=== PATIENT | female | born 1950 | race Caucasian/White ===

== ENCOUNTER 2021-09-11 12:29 | Emergency (ER) | payer MEDICARE, OTHER ==
[~2021-09-11] VITALS: Ht 152.4 cm; Wt 86.3 kg
[~2021-09-11 12:29] MED LIST: ASP81CT; DIOVAN; LASIX; METFORMIN; MULTIVITAMINS; SPIRONOLACTONE; TOPROL
[2021-09-11] MEDS ORDERED: KETOROLAC 30 MG/ML VIAL IVP ONE (12:45)
[2021-09-11] MEDS ORDERED: NS IV 500 ML 500 ML IV SCH (12:45)
[2021-09-11 12:53] LABS: BILIRUBIN,URINE NEGATIVE (NEGATIVE); CLARITY,URINE CLEAR; COLOR,URINE YELLOW; GLUCOSE, URINE (UA) 3+ (NEGATIVE); KETONES,URINE 1+ (NEGATIVE); LEUKOCYTE ESTERASE ,URINE NEGATIVE (NEGATIVE); NITRITE,URINE NEGATIVE (NEGATIVE); PROTEIN,URINE NEGATIVE (NEGATIVE)
--- NOTE | 2021-09-11 12:54 | ED Abdominal Pain ---
General Chief Complaint: Abdominal/GI Problems Stated Complaint: ABD PAIN Nursing Triage Note: AMB TO ED WITH FAMILY WITH C/O ABD PAIN AND DISTENDED ABD AND NO APPETITE Source of Information: Patient Exam Limitations: No Limitations History of Present Illness Date Seen by Provider: Sep 11, 2021 Time Seen by Provider: 12:51 Initial Comments To ER with right-sided lower abdominal pain since yesterday. Decreased appetite. Last had shredded wheat. 9 AM. No anticoagulant or antiplatelet use. No urinary symptoms no fever no chills no nausea. She is passing gas and her last bowel movement was this morning normal. Colonoscopy and April of this year showed mild diverticulosis without polyp or other abnormality. Timing/Duration: 1-2 Days Severity/Quality: Moderate Radiation: No Radiation Activities at Onset: None Associated Symptoms: Denies Symptoms; No Nausea/Vomiting Allergies and Home Medications Allergies Coded Allergies: No Known Drug Allergies (Unverified , 12/31/10) Patient Home Medication List Home Medication List Reviewed: Yes Aspirin (Aspirin 81 Mg Chew Tab) 81 Mg Chew, (Reported) Entered as Reported by: NICO STOUT on 12/31/101905 Ondansetron (Ondansetron Odt) 8 Mg Tab.rapdis, 8 MG PO Q6H PRN for NAUSEA/VOMITING Prescribed by: MYRIAM DARBY on 09/11/211401 Oxycodone HCl/Acetaminophen (Percocet 5-325 mg Tablet) 1 Each Tablet, 1 TAB PO Q4H Prescribed by: MYRIAM DARBY on 09/11/211401 Pantoprazole Sodium (Protonix) 40 Mg Tablet.dr, 40 MG PO DAILY Prescribed by: MYRIAM DARBY on 09/11/211401 [Diovan] , (Reported) Entered as Reported by: NICO STOUT on 12/31/101905 [Lasix] , (Reported) Entered as Reported by: NICO STOUT on 12/31/101905 [Metformin] , (Reported) Entered as Reported by: NICO STOUT on 12/31/101905 [Multivitamins] , (Reported) Entered as Reported by: NICO STOUT on 12/31/101905 [Spironolactone] , (Reported) Entered as Reported by: NICO STOUT on 12/31/101905 [Toprol] , (Reported) Entered as Reported by: NICO STOUT on 12/31/101905 Review of Systems Review of Systems Constitutional: see HPI EENTM: No Symptoms Reported Respiratory: No Symptoms Reported Cardiovascular: No Symptoms Reported Gastrointestinal: See HPI, Abdominal Pain; Denies Diarrhea, Denies Nausea; Poor Appetite Genitourinary: No Symptoms Reported Musculoskeletal: no symptoms reported Skin: no symptoms reported Psychiatric/Neurological: No Symptoms Reported Endocrine: No Symptoms Reported Hematologic/Lymphatic: No Symptoms Reported Past [id number] Hx Patient Social History Tobacco Use?: No Substance use?: No Alcohol Use?: No Immunizations Up To Date First/Initial COVID19 Vaccinat: OCT Second COVID19 Vaccination Bert: NOV COVID19 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 oz. kg; 37.00 BMI Method: General Appearance: WD/WN, no apparent distress, other (A&O x3 pleasant no distress) HEENT: PERRL/EOMI, normal ENT inspection Respiratory: no respiratory distress, no accessory muscle use Cardiovascular: no murmur, tachycardia Gastrointestinal: normal bowel sounds, soft; No abnormal bowel sounds; rebound, tenderness Extremities: normal range of motion, non-tender Neurologic/Psychiatric: alert, normal mood/affect, oriented x 3 Skin: normal color, warm/dry Progress/Results/Core Measures Results/Orders Lab Results Laboratory Tests Test 09/11/21 12:42 09/11/21 12:49 Range/Units Urine Color YELLOW Urine Clarity CLEAR Urine pH 6.0 5-9 Urine Specific Williams 1.010 L 1.016-1.022 Urine Protein NEGATIVE NEGATIVE Urine Glucose (UA) 3+ H NEGATIVE Urine Ketones 1+ H NEGATIVE Urine Nitrite NEGATIVE NEGATIVE Urine Bilirubin NEGATIVE NEGATIVE Urine Urobilinogen 0.2 < = 1.0 MG/DL Urine Leukocyte Esterase NEGATIVE NEGATIVE Urine RBC (Auto) NEGATIVE NEGATIVE Urine RBC NONE /HPF Urine WBC RARE /HPF Urine Squamous Epithelial Cells RARE /HPF Urine Crystals NONE /LPF Urine Bacteria NEGATIVE /HPF Urine Casts NONE /LPF Urine Mucus NEGATIVE /LPF Urine Culture Indicated NO White Blood Count 10.7 4.3-11.0 10^3/uL Red Blood Count 5.33 H 3.80-5.11 10^6/uL Hemoglobin 15.9 11.5-16.0 g/dL Hematocrit 46 35-52 % Mean Corpuscular Volume 87 80-99 fL Mean Corpuscular Hemoglobin 30 25-34 pg Mean Corpuscular Hemoglobin Concent 34 32-36 g/dL Red Cell Distribution Width 13.1 10.0-14.5 % Platelet Count 276 130-400 10^3/uL Mean Platelet Volume 9.8 9.0-12.2 fL Immature Granulocyte % (Auto) 0 % Neutrophils (%) (Auto) 77 H 42-75 % Lymphocytes (%) (Auto) 12 12-44 % Monocytes (%) (Auto) 10 0-12 % Eosinophils (%) (Auto) 1 0-10 % Basophils (%) (Auto) 1 0-10 % Neutrophils # (Auto) 8.2 H 1.8-7.8 10^3/uL Lymphocytes # (Auto) 1.3 1.0-4.0 10^3/uL Monocytes # (Auto) 1.0 0.0-1.0 10^3/uL Eosinophils # (Auto) 0.1 0.0-0.3 10^3/uL Basophils # (Auto) 0.1 0.0-0.1 10^3/uL Immature Granulocyte # (Auto) 0.0 0.0-0.1 10^3/uL Sodium Level 136 135-145 MMOL/L Potassium Level 3.9 3.6-5.0 MMOL/L Chloride Level 104 98-107 MMOL/L Carbon Dioxide Level 20 L 21-32 MMOL/L Anion Gap 12 5-14 MMOL/L Blood Urea Nitrogen 15 7-18 MG/DL Creatinine 0.82 0.60-1.30 MG/DL Estimat Glomerular Filtration Rate 68 BUN/Creatinine Ratio 18 Glucose Level 229 H 70-105 MG/DL Calcium Level 10.0 8.5-10.1 MG/DL Corrected Calcium 9.8 8.5-10.1 MG/DL Total Bilirubin 1.3 H 0.1-1.0 MG/DL Aspartate Amino Transf (AST/SGOT) 12 5-34 U/L Alanine Aminotransferase (ALT/SGPT) 14 0-55 U/L Alkaline Phosphatase 61 40-136 U/L C-Reactive Protein High Sensitivity 9.77 H 0.00-0.50 MG/DL Total Protein 7.2 6.4-8.2 GM/DL Albumin 4.3 3.2-4.5 GM/DL Triglycerides Level 151 H <150 MG/DL Cholesterol Level 167 < 200 MG/DL LDL Cholesterol Direct 107 1-129 MG/DL VLDL Cholesterol 30 5-40 MG/DL HDL Cholesterol 42 40-60 MG/DL Lipase 188 H 8-78 U/L My Orders Orders - MYRIAM DARBY APRN Cbc With Automated Diff (09/11/21 12:45) Comprehensive Metabolic Panel (09/11/21 12:45) Hs C Reactive Protein (09/11/21 12:45) Ed Iv/Invasive Line Start (09/11/21 12:45) Ua Culture If Indicated (09/11/21 12:45) Ketorolac Injection (Toradol Injection) (09/11/21 12:45) Ns Iv 500 Ml (Sodium Chloride 0.9%) (09/11/21 12:45) Ct Abd/Pelvis Wo(Kidney Stone) (09/11/21 12:45) Lipase (09/11/21 13:19) Us Gallbladder [id number] (09/11/21 13:32) Lipid Panel (09/11/21 13:34) Fentanyl Inj (Sublimaze Injection) (09/11/21 13:45) Medications Given in ED Current Medications Medications Dose Ordered Sig/Jeremiah Route Start Time Stop Time Status Last Admin Dose Admin Fentanyl Citrate 50 mcg ONCE ONCE IVP 09/11/21 13:45 09/11/21 13:46 DC 09/11/21 13:43 50 MCG Ketorolac Tromethamine 15 mg ONCE ONCE IVP 09/11/21 12:45 09/11/21 12:48 DC 09/11/21 13:06 15 MG Vital Signs/I&O 09/11/21 12:35 Temp 36.4 Pulse 109 Resp 18 B/P (MAP) 138/68 (91) Pulse Ox 96 O2 Delivery Room Air Blood Pressure Mean: 91 Diagnostic Imaging Diagonstic Imaging: CT Comments NAME: LM BABB MED REC#: [id number] PT STATUS: REG ER : 1950 PHYSICIAN: MYRIAM DARBY APRN ADMIT DATE: 09/11/21/ER Draft Date of Exam:09/11/21 CT ABD/PELVIS WO(KIDNEY STONE) PROCEDURE: CT urinary tract, rule out kidney stone. TECHNIQUE: Multiple contiguous axial images were obtained through the abdomen and pelvis without the use of intravenous contrast. Auto Exposure Controls were utilized during the CT exam to meet ALARA standards for radiation dose reduction. INDICATION: Right lower quadrant pain. No prior studies are available for comparison. The lung bases are clear of acute infiltrates. The liver and gallbladder are unremarkable. No biliary ductal dilatation is seen. There is some inflammation in the right upper quadrant, adjacent to the 2nd portion of the duodenum and pancreatic head. Pancreatic body and tail are unremarkable. No peripancreatic fluid collections are seen. The spleen is unremarkable. No adrenal mass is identified. There are tiny nonobstructing calculi in both kidneys. There is a probable cyst in the lower pole right kidney measuring 3.5 cm in size. Aorta is nonaneurysmal. There is some generalized colonic diverticulosis but no evidence of acute diverticulitis. Appendix is visualized in the right lower quadrant and appears unremarkable. No free fluid or fluid collection is seen. The bladder and uterus are unremarkable. Bony structures are nonacute. IMPRESSION: 1. Bilateral nonobstructing nephrolithiasis. 2. No CT evidence of acute appendicitis. 3. There is some inflammation in the right upper quadrant adjacent to the 2nd portion of duodenum and pancreatic head and uncinate. Features could be secondary to focal pancreatitis versus peptic ulcer disease. There is no free air to suggest perforated hollow viscus. 4. Uncomplicated diverticulosis. Dictated on workstation # [id number] Dict: 09/11/21 1317 Trans: 09/11/21 1325 CVB [id number] Interpreted by: ANDREY SULLIVAN MD Electronically signed by: Departure Impression Primary Impression: Pancreatitis Disposition: 01 HOME, SELF-CARE Condition: Stable Departure-Patient Inst. Decision time for Depature: 13:57 Referrals: NO,LOCAL PHYSICIAN (PCP/Family) Primary Care Physician Patient Instructions: No Instuctions Given Add. Discharge Instructions: 1. clear liquids for 36-48 hours. 2. Follow up with Dr Peacock. 3. Nausea and pain meds as directed. Return to ER for intolerable pain, vomintign, fevers, or other concerns. All discharge instructions reviewed with patient and/or family. Voiced understanding. Scripts Oxycodone HCl/Acetaminophen (Percocet 5-325 mg Tablet) 1 Each Tablet 1 TAB PO Q4H for PAIN-MODERATE MDD 6 TABS for 7 Days, #14 TAB Prov: MYRIAM DARBY APRN 09/11/21 Pantoprazole Sodium (Protonix) 40 Mg Tablet.dr 40 MG PO DAILY, #30 TAB Prov: MYRIAM DARBY APRN 09/11/21 Ondansetron (Ondansetron Odt) 8 Mg Tab.rapdis 8 MG PO Q6H PRN for NAUSEA/VOMITING, #20 TAB Prov: MYRIAM DARBY APRN 09/11/21 MYRIAM DARBY APRN Sep 11, 2021 12:54
[2021-09-11 12:55] LABS: BASOPHILS # (AUTO) 0.1 10^3/uL (0.0-0.1); BASOPHILS % (AUTO) 1 % (0-10); EOSINOPHILS # (AUTO) 0.1 10^3/uL (0.0-0.3); EOSINOPHILS % (AUTO) 1 % (0-10); HEMATOCRIT 46 % (35-52); HEMOGLOBIN 15.9 g/dL (11.5-16.0); LYMPHOCYTES # (AUTO) 1.3 10^3/uL (1.0-4.0); LYMPHOCYTES % (AUTO) 12 % (12-44); MEAN CORPUSCULAR HEMOGLOBIN 30 pg (25-34); MEAN CORPUSCULAR HGB CONC 34 g/dL (32-36); MEAN CORPUSCULAR VOLUME 87 fL (80-99); MEAN PLATELET VOLUME 9.8 fL (9.0-12.2); MONOCYTES % (AUTO) 10 % (0-12); NEUTROPHILS # (AUTO) 8.2 10^3/uL (1.8-7.8); NEUTROPHILS % (AUTO) 77 % (42-75); PLATELET COUNT 276 10^3/uL (130-400); WHITE BLOOD COUNT 10.7 10^3/uL (4.3-11.0)
[2021-09-11 13:09] LABS: BACTERIA,URINE NEGATIVE /HPF; SQUAMOUS EPITHELIAL CELL,UR RARE /HPF; WBC,URINE RARE /HPF
[2021-09-11 13:17] LABS: ALBUMIN 4.3 GM/DL (3.2-4.5); BILIRUBIN,TOTAL 1.3 MG/DL (0.1-1.0); CREATININE SERUM 0.82 MG/DL (0.60-1.30); POTASSIUM 3.9 MMOL/L (3.6-5.0); TOTAL PROTEIN 7.2 GM/DL (6.4-8.2)
--- NOTE | 2021-09-11 13:25 | Diagnostic Imaging Report ---
PROCEDURE: CT urinary tract, rule out kidney stone. TECHNIQUE: Multiple contiguous axial images were obtained through the abdomen and pelvis without the use of intravenous contrast. Auto Exposure Controls were utilized during the CT exam to meet ALARA standards for radiation dose reduction. INDICATION: Right lower quadrant pain. No prior studies are available for comparison. The lung bases are clear of acute infiltrates. The liver and gallbladder are unremarkable. No biliary ductal dilatation is seen. There is some inflammation in the right upper quadrant, adjacent to the 2nd portion of the duodenum and pancreatic head. Pancreatic body and tail are unremarkable. No peripancreatic fluid collections are seen. The spleen is unremarkable. No adrenal mass is identified. There are tiny nonobstructing calculi in both kidneys. There is a probable cyst in the lower pole right kidney measuring 3.5 cm in size. Aorta is nonaneurysmal. There is some generalized colonic diverticulosis but no evidence of acute diverticulitis. Appendix is visualized in the right lower quadrant and appears unremarkable. No free fluid or fluid collection is seen. The bladder and uterus are unremarkable. Bony structures are nonacute. IMPRESSION: 1. Bilateral nonobstructing nephrolithiasis. 2. No CT evidence of acute appendicitis. 3. There is some inflammation in the right upper quadrant adjacent to the 2nd portion of duodenum and pancreatic head and uncinate. Features could be secondary to focal pancreatitis versus peptic ulcer disease. There is no free air to suggest perforated hollow viscus. 4. Uncomplicated diverticulosis. Dictated by: Dictated on workstation # [id number]
[2021-09-11] MEDS ORDERED: fentaNYL INJ 100 MCG/2 ML AMP IVP ONE (13:45)
[2021-09-11 13:49] LABS: CHOLESTEROL 167 MG/DL (< 200); HDL CHOLESTEROL 42 MG/DL (40-60); TRIGLYCERIDES 151 MG/DL (<150); VLDL CHOLESTEROL 30 MG/DL (5-40)
[2021-09-11] MEDS ORDERED: ONDA8TAB13 PO (14:02)
[2021-09-11] MEDS ORDERED: PANT40TA2 PO (14:02)
[2021-09-11] MEDS ORDERED: OXYC1TAB87 PO (14:02)
[2021-09-11 14:24] VITALS: BP 113/69
--- NOTE | 2021-09-11 16:05 | Diagnostic Imaging Report ---
PROCEDURE: US Gallbladder. TECHNIQUE: Multiple real-time grayscale images were obtained over the right upper quadrant in various projections. INDICATION: Right upper quadrant pain EXAMINATION: Ultrasound gallbladder 09/11/2021 FINDINGS: The liver is unremarkable. There are no focal lesions. There is no intrahepatic biliary dilatation. The common duct is not seen due to overlying bowel gas. The gallbladder wall does not appear thickened. There is no pericholecystic fluid. No stones or sludge within the gallbladder. Pancreas is not well seen due to overlying bowel gas. Visualized aspects of the aorta and IVC unremarkable. The right kidney 11.5 cm in length with no hydronephrosis. There is no ascites IMPRESSION: 1. Visualized structures unremarkable with some areas not well seen due to overlying bowel gas. Dictated by: Dictated on workstation # [id number]
== END 2021-09-11 14:24 | disposition home or self-care (01) ==
LOC: EDUNIT# 12:29 → ER 12:33
DX: K85.90 Acute pancreatitis without necrosis or infection, unspecified (principal); R00.0 Tachycardia, unspecified; Z79.82 Long term (current) use of aspirin
CPT/HCPCS: 36415; 74176; 76705; 80053; 80061; 81000; 83690; 85025; 86141